=== PATIENT | male | born 1960 | race Caucasian/White ===

== ENCOUNTER 2023-08-21 18:25 | Inpatient (IN) | payer OTHER ==
[2023-08-21 19:02] LABS: #Basophils 0.1 thou/uL (0.0-0.2); #Monocytes 1.5 thou/uL (0.11-0.59); #Neutrophils 19.1 thou/uL (1.40-6.50); %Basophils 0.4 % (0.0-1.0); %Eosinophils 0.1 % (0.0-10.0); %Lymphocytes 5.7 % (21.0-51.0); %Monocytes 6.7 % (0.0-10.0); %Neutrophils 86.5 % (42.0-75.0); Hematocrit 40.7 % (42.0-52.0); Hemoglobin 14.5 g/dL (14.0-18.0); Mean Corpuscular HGB CONC 35.6 g/dL (32.0-36.0); Mean Corpuscular Hemoglobin 31.9 pg (27.0-31.0); Mean Corpuscular Volume 89.6 fl (78.0-98.0); Mean Platelet Volume 9.9 fL (7.4-10.4); Platelet Count 330 10x3/uL (130-400); RBC Distribution Width 12.7 % (11.5-14.5); Red Blood Cell (RBC) Count 4.54 mill/uL (4.70-6.10); White Blood Cell (WBC) Count 22.1 10x3/uL (4.8-10.8)
[2023-08-21 19:26] LABS: ALT (SGPT) 26 U/L (8-55); AST (SGOT) 28 U/L (5-34); Albumin 4.4 g/dL (3.5-5.0); Alkaline Phosphatase 52 U/L (40-110); Anion Gap 19 mmol/L (10-20); BUN (Urea Nitrogen) 35 mg/dL (8.4-25.7); Bilirubin, Total 0.4 mg/dL (0.2-1.2); CK (CPK) 505 U/L (30-200); Calc. Creatinine Clearance 0 mL/min (70-130); Calcium 9.2 mg/dL (7.8-10.44); Carbon Dioxide 17 mmol/L (22-29); Chloride 105 mmol/L (98-107); Estimated GFR 29; Globulin 2.9 g/dL (2.4-3.5); Glucose 126 mg/dL (70-105); Potassium 4.7 mmol/L (3.5-5.1); Protein, Total 7.3 g/dL (6.0-8.3); Sodium 136 mmol/L (136-145)
[2023-08-21 19:30] LABS: Troponin I 0.053 ng/mL (< 0.028)
[2023-08-21] MEDS ORDERED: Aspirin Chewable 81 MG TAB ONE (19:46)
[2023-08-21] MEDS ORDERED: HYDROcodone/Acetaminophen 5/325 mg Tablet PO PRN (21:25)
[2023-08-21] MEDS ORDERED: Ondansetron ODT 4 MG TAB PO PRN (21:25)
[2023-08-21] MEDS ORDERED: Ondansetron PF 4 MG/2 ML Vial IVP PRN (21:25)
[2023-08-21] MEDS ORDERED: Bisacodyl 5 MG TAB PO PRN (21:25)
[2023-08-21] MEDS ORDERED: Senokot S 8.6-50 MG TAB PO PRN (21:25)
[2023-08-21] MEDS ORDERED: Nitroglycerin 0.4 MG TAB (25 Tab Bottle) SL PRN (21:30)
[2023-08-21] MEDS ORDERED: Sodium Chloride 0.9% 1,000 ML IV SCH (22:00)
[2023-08-21 22:01] VITALS: BMI 27.6
[2023-08-21 23:35] LABS: Troponin I 0.249 ng/mL (< 0.028)
[2023-08-21] MEDS ORDERED: Heparin 5,000 UNITS/ML VIAL SC SCH (23:45)
[2023-08-21] MEDS ORDERED: Atorvastatin Calcium 40 MG TAB PO SCH (23:45)
[2023-08-22] MEDS ORDERED: Sodium Bicarb 50 MEQ/50 ML VIAL IVP SCH (01:00)
[2023-08-22 03:25] LABS: #Basophils 0.1 thou/uL (0.0-0.2); #Eosinphils 0.1 thou/uL (0.0-0.7); #Monocytes 1.4 thou/uL (0.11-0.59); #Neutrophils 9.3 thou/uL (1.40-6.50); %Basophils 0.5 % (0.0-1.0); %Eosinophils 0.9 % (0.0-10.0); %Lymphocytes 20.4 % (21.0-51.0); %Monocytes 9.9 % (0.0-10.0); %Neutrophils 67.9 % (42.0-75.0); Hemoglobin 12.8 g/dL (14.0-18.0); Mean Corpuscular HGB CONC 35.6 g/dL (32.0-36.0); Mean Corpuscular Hemoglobin 31.7 pg (27.0-31.0); Mean Corpuscular Volume 89.1 fl (78.0-98.0); Platelet Count 294 10x3/uL (130-400); RBC Distribution Width 12.8 % (11.5-14.5); Red Blood Cell (RBC) Count 4.04 mill/uL (4.70-6.10); White Blood Cell (WBC) Count 13.6 10x3/uL (4.8-10.8)
[2023-08-22 03:48] LABS: Anion Gap 15 mmol/L (10-20); BUN (Urea Nitrogen) 36 mg/dL (8.4-25.7); Calc. Creatinine Clearance 55 mL/min (70-130); Calcium 8.8 mg/dL (7.8-10.44); Carbon Dioxide 23 mmol/L (22-29); Cardiac Risk 3.9 (Less than 4.5); Chloride 106 mmol/L (98-107); Cholesterol 149 mg/dl (< 200 Desired); Estimated GFR 44; Glucose 124 mg/dL (70-105); HDL Cholesterol 38 mg/dL (>60 Neg Risk); Hemoglobin A1c 5.3 % (4.0-6.0); LDL Cholesterol, Calculated 88 mg/dL; Magnesium 2.3 mg/dL (1.6-2.6); Potassium 3.6 mmol/L (3.5-5.1); Sodium 140 mmol/L (136-145); Triglycerides 117 mg/dL (Less than 150)
[2023-08-22 03:50] LABS: Bacteria/HPF None Seen HPF (None Seen); Bilirubin Negative (Negative); Blood, Urine Negative (Negative); CAUTI Indications for Culture Alt mental st,lethar; Clarity Clear (Clear); Glucose, Urine (Dipstick) Normal (Negative); Ketone, Urine Trace mg/dL (Negative); Leukocyte Negative Leu/uL (Negative); Nitrite Negative (Negative); Protein, Urine (Dipstick) Negative (Neg-Trace); RBC/HPF 0-3 HPF (0-3); Specific Gravity, Urine 1.014 (1.002-1.036); Squamous Epithelial 0-3 HPF (0-3); Urobilinogen Normal mg/dL (Less than 2); WBC/HPF 0-3 HPF (0-3); pH, Urine 5.5 (5.0-9.0)
[2023-08-22 03:51] LABS: Urine Culture Reflex No No
[2023-08-22 03:56] LABS: Troponin I 0.382 ng/mL (< 0.028)
[2023-08-22 07:53] LABS: Troponin I 0.409 ng/mL (< 0.028)
[2023-08-22] MEDS: Aspirin Chewable 81 MG TAB PO SCH (08:03)
[2023-08-22] MEDS: Heparin 5,000 UNITS/ML VIAL SC SCH ×3 (08:04→21:13)
[2023-08-22] MEDS ORDERED: Famotidine 20 MG TAB PO SCH (09:00)
[2023-08-22] MEDS ORDERED: FLU VACC QS2023-24(6MOS UP)/PF 60 MCG/0.5 ML SYRINGE IM ONE (09:00)
[2023-08-22] MEDS: Sodium Chloride 0.9% 1,000 ML IV SCH ×2 (09:53→21:12)
[2023-08-22 11:08] LABS: Troponin I 0.333 ng/mL (< 0.028)
[2023-08-22 15:03] LABS: Anion Gap 13 mmol/L (10-20); BUN (Urea Nitrogen) 31 mg/dL (8.4-25.7); Calc. Creatinine Clearance 66 mL/min (70-130); Calcium 8.8 mg/dL (7.8-10.44); Carbon Dioxide 23 mmol/L (22-29); Chloride 108 mmol/L (98-107); Estimated GFR 54; Glucose 81 mg/dL (70-105); Potassium 3.7 mmol/L (3.5-5.1); Sodium 140 mmol/L (136-145)
[2023-08-22] MEDS: Atorvastatin Calcium 40 MG TAB PO SCH (21:13)
[2023-08-23 04:48] LABS: Anion Gap 9 mmol/L (10-20); BUN (Urea Nitrogen) 24 mg/dL (8.4-25.7); Calc. Creatinine Clearance 78 mL/min (70-130); Calcium 8.6 mg/dL (7.8-10.44); Carbon Dioxide 26 mmol/L (22-29); Chloride 109 mmol/L (98-107); Estimated GFR 67; Glucose 98 mg/dL (70-105); Potassium 4.2 mmol/L (3.5-5.1); Sodium 140 mmol/L (136-145); Troponin I 0.182 ng/mL (< 0.028)
[2023-08-23] MEDS: Sodium Chloride 0.9% 1,000 ML IV SCH ×2 (05:45→16:06)
[2023-08-23] MEDS: Heparin 5,000 UNITS/ML VIAL SC SCH ×3 (09:30→20:59)
[2023-08-23] MEDS: Aspirin Chewable 81 MG TAB PO SCH (09:33)
[2023-08-23] MEDS: Carvedilol 3.125 MG TAB PO SCH ×2 (09:33→16:07)
[2023-08-23] MEDS: Famotidine 20 MG TAB PO SCH ×2 (09:33→21:00)
[2023-08-23] MEDS ORDERED: Verapamil 5 MG/2 ML VIAL ONE (13:57)
[2023-08-23] MEDS ORDERED: Heparin 10,000 UNITS/ 10 ML VIAL ONE (13:57)
[2023-08-23] MEDS ORDERED: Lidocaine 1% (PF) 30 ML VIAL ONE (13:58)
[2023-08-23] MEDS ORDERED: Iopamidol 370 76% 100 ML VIAL ONE (13:58)
[2023-08-23] MEDS ORDERED: Nitroglycerin 50 MG/250 ML BOT 250 ML ONE (13:58)
[2023-08-23] MEDS ORDERED: fentaNYL 50 mcg/mL 1 mL Vial ONE (14:51)
[2023-08-23] MEDS ORDERED: Midazolam HCl 2 mg/2 ml Vial ONE (14:51)
[2023-08-23] MEDS ORDERED: Sodium Chloride 0.9% 200 ML IV PRN (15:21)
[2023-08-23] MEDS ORDERED: Acetaminophen/Codeine 30-300mg Tablet PO PRN (15:21)
[2023-08-23] MEDS ORDERED: Diazepam 5 MG TAB PO PRN (17:57)
[2023-08-23] MEDS ORDERED: Communication Order-Pharmacy FS SCH (17:57)
[2023-08-23] MEDS ORDERED: Isosorbide Mononitrate 30 MG ER.TAB PO SCH (18:00)
[2023-08-23] MEDS: Atorvastatin Calcium 40 MG TAB PO SCH (20:59)
[2023-08-24] MEDS: Sodium Chloride 0.9% 1,000 ML IV SCH ×3 (00:22→21:23)
[2023-08-24 05:45] LABS: Anion Gap 13 mmol/L (10-20); BUN (Urea Nitrogen) 17 mg/dL (8.4-25.7); Calc. Creatinine Clearance 75 mL/min (70-130); Calcium 8.7 mg/dL (7.8-10.44); Carbon Dioxide 24 mmol/L (22-29); Chloride 108 mmol/L (98-107); Estimated GFR 63; Glucose 88 mg/dL (70-105); Potassium 3.9 mmol/L (3.5-5.1); Sodium 141 mmol/L (136-145)
[2023-08-24] MEDS: Aspirin Chewable 81 MG TAB PO SCH (09:33)
[2023-08-24] MEDS: Isosorbide Mononitrate 30 MG ER.TAB PO SCH (09:33)
[2023-08-24] MEDS: Famotidine 20 MG TAB PO SCH ×2 (09:33→21:23)
[2023-08-24] MEDS: Carvedilol 6.25 MG TAB PO SCH ×2 (09:33→16:01)
[2023-08-24] MEDS: Heparin 5,000 UNITS/ML VIAL SC SCH ×3 (10:22→21:23)
[2023-08-24] MEDS: Acetaminophen 325 MG TAB PO PRN (13:04)
[2023-08-24] MEDS: Atorvastatin Calcium 40 MG TAB PO SCH (21:23)
[2023-08-25 06:02] LABS: Anion Gap 12 mmol/L (10-20); BUN (Urea Nitrogen) 14 mg/dL (8.4-25.7); Calc. Creatinine Clearance 84 mL/min (70-130); Calcium 8.6 mg/dL (7.8-10.44); Carbon Dioxide 25 mmol/L (22-29); Chloride 108 mmol/L (98-107); Estimated GFR 72; Glucose 94 mg/dL (70-105); Sodium 141 mmol/L (136-145)
[2023-08-25] MEDS: Carvedilol 6.25 MG TAB PO SCH ×2 (09:02→16:51)
[2023-08-25] MEDS: Acetaminophen 325 MG TAB PO PRN (09:03)
[2023-08-25] MEDS: Heparin 5,000 UNITS/ML VIAL SC SCH ×3 (09:03→20:35)
[2023-08-25] MEDS: Famotidine 20 MG TAB PO SCH ×2 (09:03→20:35)
[2023-08-25] MEDS: Isosorbide Mononitrate 30 MG ER.TAB PO SCH (09:03)
[2023-08-25] MEDS: Aspirin Chewable 81 MG TAB PO SCH (09:03)
[2023-08-25] MEDS: Atorvastatin Calcium 40 MG TAB PO SCH (20:35)
[2023-08-26] MEDS: Acetaminophen 325 MG TAB PO PRN (04:07)
[2023-08-26] MEDS: Carvedilol 6.25 MG TAB PO SCH (04:07)
[2023-08-26 05:19] LABS: #Basophils 0.1 thou/uL (0.0-0.2); #Eosinphils 0.3 thou/uL (0.0-0.7); #Monocytes 1.3 thou/uL (0.11-0.59); #Neutrophils 4.2 thou/uL (1.40-6.50); %Eosinophils 3.6 % (0.0-10.0); %Lymphocytes 16.2 % (21.0-51.0); %Monocytes 18.2 % (0.0-10.0); %Neutrophils 60.7 % (42.0-75.0); Hematocrit 35.6 % (42.0-52.0); Hemoglobin 12.5 g/dL (14.0-18.0); Mean Corpuscular HGB CONC 35.1 g/dL (32.0-36.0); Mean Corpuscular Hemoglobin 31.5 pg (27.0-31.0); Mean Corpuscular Volume 89.7 fl (78.0-98.0); Platelet Count 216 10x3/uL (130-400); RBC Distribution Width 12.2 % (11.5-14.5); Red Blood Cell (RBC) Count 3.97 mill/uL (4.70-6.10); White Blood Cell (WBC) Count 6.9 10x3/uL (4.8-10.8)
[2023-08-26 05:44] LABS: Anion Gap 13 mmol/L (10-20); BUN (Urea Nitrogen) 14 mg/dL (8.4-25.7); Calc. Creatinine Clearance 78 mL/min (70-130); Carbon Dioxide 25 mmol/L (22-29); Chloride 106 mmol/L (98-107); Estimated GFR 67; Glucose 107 mg/dL (70-105); Potassium 3.6 mmol/L (3.5-5.1); Sodium 140 mmol/L (136-145)
[2023-08-26] MEDS ORDERED: Bupivacaine PF 0.5% 30 ML VIAL ONE (06:36)
[2023-08-26] MEDS ORDERED: Dexamethasone 4 mg/ml Vial ONE (06:36)
[2023-08-26] MEDS ORDERED: PHENYLEPHRINE-NS 100 MCG/ML 10 ML SYRINGE ONE ×2 (06:36→07:43)
[2023-08-26] MEDS ORDERED: Albumin 5% 500 ML ONE (06:36)
[2023-08-26] MEDS ORDERED: EPINEPHrine 1 MG/ML AMP ONE (06:36)
[2023-08-26] MEDS ORDERED: Aminocaproic Acid 5 GM/20 ML VIAL ONE ×2 (06:49→07:43)
[2023-08-26] MEDS ORDERED: Norepinephrine 4 MG/4 ML VIAL ONE (06:49)
[2023-08-26] MEDS ORDERED: Insulin Regular 300 UNITS/3 ML VIAL ONE (06:49)
[2023-08-26] MEDS ORDERED: Midazolam HCl 2 mg/2 ml Vial ONE ×2 (06:49)
[2023-08-26] MEDS ORDERED: Rocuronium Bromide 50 MG/5 ML VIAL ONE (06:49)
[2023-08-26] MEDS ORDERED: Fentanyl 250 MCG/5 ML VIAL ONE (06:49)
[2023-08-26] MEDS ORDERED: Heparin 10,000 UNITS/1 ML VIAL 30,000 UNITS in Sodium Chloride 0.9% 1,000 ML FS SCH (07:00)
[2023-08-26] MEDS ORDERED: Clindamycin/D5W 900 mg/50 ml Premix Bag ONE (07:22)
[2023-08-26] MEDS ORDERED: LevoFLOXacin 750 mg/D5W 750 MG in Premix Bag 1 BAG IVPB SCH (07:30)
[2023-08-26] MEDS ORDERED: Clindamycin/D5W 900 MG in Premix Bag 1 BAG IVPB SCH (07:30)
[2023-08-26] MEDS ORDERED: Lidocaine 2% PF 100 mg/5 ml Syringe ONE (07:43)
[2023-08-26] MEDS ORDERED: Magnesium 5 GM/10 ML VIAL ONE (07:43)
[2023-08-26] MEDS ORDERED: Cardioplegic Soln 1,000 ML BAG ONE (07:43)
[2023-08-26] MEDS ORDERED: Heparin 30,000 units/30 ml VIAL ONE (07:43)
[2023-08-26] MEDS ORDERED: Heparin 5,000 UNITS/ML VIAL ONE (07:43)
[2023-08-26] MEDS ORDERED: Mannitol 12.5 GM/50 ML ONE (07:43)
[2023-08-26] MEDS ORDERED: Thrombin 5000 UNITS/5 ML VIAL ONE (07:43)
[2023-08-26] MEDS ORDERED: Lidocaine 1% PF 5 ML VIAL ONE (07:43)
[2023-08-26] MEDS ORDERED: Sodium Bicarb 50 MEQ/50 ML VIAL ONE (07:43)
[2023-08-26] MEDS ORDERED: PROPOFOL 200 MG/20 ML VIAL ONE (07:43)
[2023-08-26] MEDS ORDERED: Papaverine 60 MG/2 ML VIAL ONE (07:43)
[2023-08-26] MEDS ORDERED: Potassium Chloride 60 MEQ/30 ML VIAL ONE (07:43)
[2023-08-26] MEDS ORDERED: Rocuronium Bromide 10 MG/ML (10ML VIAL) ONE (07:43)
[2023-08-26] MEDS ORDERED: Vancomycin 1 GM VIAL ONE (07:43)
[2023-08-26] MEDS ORDERED: Heparin 10,000 UNITS/ 10 ML VIAL ONE (08:32)
[2023-08-26] MEDS ORDERED: niCARdipine 25 MG/10 ML SDV ONE (11:21)
[2023-08-26] MEDS ORDERED: Bisacodyl 10 MG SUPP PR PRN (11:42)
[2023-08-26] MEDS ORDERED: Nitroglycerin 50 MG/250 ML BOT 250 ML IVPB PRN (11:42)
[2023-08-26] MEDS ORDERED: Ipratropium/Albuterol 3 ML NEB NEB PRN (11:42)
[2023-08-26] MEDS ORDERED: NOREPINEPHRINE 8 MG/250 ML-D5W 250 ML IVPB PRN (11:42)
[2023-08-26] MEDS ORDERED: Guaifenesin DM 100-10/5 ML UDCUP PO PRN (11:42)
[2023-08-26] MEDS ORDERED: Hetastarch 6% 500 ML 500 ML IVPB PRN (11:42)
[2023-08-26] MEDS ORDERED: fentaNYL 50 mcg/mL 1 mL Vial SLOW IVP PRN (11:42)
[2023-08-26] MEDS ORDERED: Bisacodyl 5 MG TAB PO PRN (11:42)
[2023-08-26] MEDS ORDERED: Magnesium 2 GM/50 ML(in water) 2 GM in Premix Bag 1 BAG IVPB SCH (11:42)
[2023-08-26] MEDS ORDERED: D5 1/2 NS w/20 mEq KCL 1,000 ML IV SCH (11:42)
[2023-08-26] MEDS ORDERED: Ondansetron PF 4 MG/2 ML Vial IVP PRN (11:42)
[2023-08-26] MEDS ORDERED: Acetaminophen 325 MG TAB PO PRN (11:42)
[2023-08-26] MEDS ORDERED: Mag-Al 1200 mg/1200 mg/30 ML UDCUP PO PRN (11:42)
[2023-08-26] MEDS ORDERED: Morphine 2 MG/ML VIAL SLOW IVP PRN (11:42)
[2023-08-26] MEDS ORDERED: Potassium Chloride 20 MEQ/100 ML PREMIX BAG IVPB PRN (11:42)
[2023-08-26] MEDS ORDERED: hydrALAZINE 20 MG/ML VIAL SLOW IVP PRN (11:42)
[2023-08-26] MEDS ORDERED: Nitroglycerin 50 MG/250 ML BOT 0 ML ONE (11:56)
[2023-08-26 11:58] LABS: Actual Bicarbonate (HCO3a) 21.3 mEq/L (22-28); Base Excess (BEa) -3.8 mEq/L (-2.0 to +3.0); CO2 Tension 39.1 mmHg (35.0-45.0); Calcium, Ionized (arterial) 1.11 mmol/L (1.12-1.30); Carboxyhemoglobin (COHb) 0.1 gm% (0.0-3.0); Hematocrit-ABG 36 % (42.0-52.0); Hemoglobin (Hb) 12.1 g/dL (14.0-18.0); O2 Tension (PaO2), arterial 101.7 mmHg (> 80.0); Potassium - ABG Lab 4.06 mmol/L (3.70-5.30); pH, Arterial 7.355 (7.35-7.45)
[2023-08-26 12:02] LABS: Puncture Site Arterial Line
[2023-08-26 12:03] LABS: ALV-art Gradient 277.225 mmHg (0-20)
[2023-08-26 12:07] LABS: #Eosinphils 0.3 thou/uL (0.0-0.7); #Monocytes 1.1 thou/uL (0.11-0.59); #Neutrophils 8.3 thou/uL (1.40-6.50); %Basophils 0.4 % (0.0-1.0); %Eosinophils 2.3 % (0.0-10.0); %Monocytes 9.5 % (0.0-10.0); %Neutrophils 75.2 % (42.0-75.0); Hematocrit 31.3 % (42.0-52.0); Mean Corpuscular HGB CONC 35.1 g/dL (32.0-36.0); Mean Corpuscular Hemoglobin 31.8 pg (27.0-31.0); Mean Corpuscular Volume 90.5 fl (78.0-98.0); Mean Platelet Volume 10.1 fL (7.4-10.4); Platelet Count 161 10x3/uL (130-400); RBC Distribution Width 12.4 % (11.5-14.5); Red Blood Cell (RBC) Count 3.46 mill/uL (4.70-6.10); White Blood Cell (WBC) Count 11.1 10x3/uL (4.8-10.8)
[2023-08-26] MEDS ORDERED: HUMULIN R 100 UNITS in Sodium Chloride 0.9% 100 ML IVPB SCH (12:15)
[2023-08-26] MEDS ORDERED: Dextrose 50% Abboject 50 ML SYRINGE SLOW IVP PRN (12:15)
[2023-08-26] MEDS ORDERED: Glucagon 1 MG/ML KIT SC PRN (12:15)
[2023-08-26] MEDS ORDERED: niCARdipine 25 MG in Sodium Chloride 0.9% 250 ML 250 ML IVPB SCH (12:15)
[2023-08-26] MEDS ORDERED: Dextrose 5% in Water 1,000 ML IV PRN (12:15)
[2023-08-26 12:18] LABS: INR-International Normal Ratio 1.3; Prothrombin Time 16.9 sec (12.0-14.7)
[2023-08-26 12:29] LABS: Anion Gap 11 mmol/L (10-20); BUN (Urea Nitrogen) 14 mg/dL (8.4-25.7); Calc. Creatinine Clearance 90 mL/min (70-130); Calcium 7.9 mg/dL (7.8-10.44); Carbon Dioxide 22 mmol/L (22-29); Chloride 109 mmol/L (98-107); Estimated GFR 79; Glucose 150 mg/dL (70-105); Sodium 138 mmol/L (136-145)
[2023-08-26] MEDS: Clindamycin/D5W 900 MG in Premix Bag 1 BAG IVPB SCH ×3 (13:11→22:22)
[2023-08-26] MEDS: Insulin Regular 300 UNITS/3 ML VIAL SC PRN ×3 (13:18→20:31)
[2023-08-26 13:45] LABS: Actual Bicarbonate (HCO3a) 21.5 mEq/L (22-28); Base Excess (BEa) -3.6 mEq/L (-2.0 to +3.0); CO2 Tension 39.2 mmHg (35.0-45.0); Calcium, Ionized (arterial) 1.11 mmol/L (1.12-1.30); Carboxyhemoglobin (COHb) 0.5 gm% (0.0-3.0); Hematocrit-ABG 40 % (42.0-52.0); Hemoglobin (Hb) 13.6 g/dL (14.0-18.0); Puncture Site Arterial Line; pH, Arterial 7.358 (7.35-7.45)
[2023-08-26 14:56] LABS: ALV-art Gradient 175.125 mmHg (0-20); Actual Bicarbonate (HCO3a) 20.4 mEq/L (22-28); Base Excess (BEa) -4.4 mEq/L (-2.0 to +3.0); CO2 Tension 36.7 mmHg (35.0-45.0); Calcium, Ionized (arterial) 1.11 mmol/L (1.12-1.30); Carboxyhemoglobin (COHb) 0.7 gm% (0.0-3.0); Hematocrit-ABG 40 % (42.0-52.0); Hemoglobin (Hb) 13.5 g/dL (14.0-18.0); O2 Tension (PaO2), arterial 64.2 mmHg (> 80.0); Puncture Site Arterial Line; pH, Arterial 7.362 (7.35-7.45)
[2023-08-26] MEDS: fentaNYL 50 mcg/mL 1 mL Vial SLOW IVP PRN ×3 (15:12→22:21)
[2023-08-26 17:14] LABS: Hematocrit 35.2 % (42.0-52.0); Hemoglobin 12.3 g/dL (14.0-18.0)
[2023-08-26 17:42] LABS: Potassium 4.2 mmol/L (3.5-5.1)
[2023-08-26] MEDS: Atorvastatin Calcium 20 MG TAB PO SCH (20:30)
[2023-08-26] MEDS ORDERED: Famotidine/PF 20 mg/2ml Vial SLOW IVP SCH (21:00)
[2023-08-27] MEDS: fentaNYL 50 mcg/mL 1 mL Vial SLOW IVP PRN ×3 (01:38→09:55)
[2023-08-27 04:07] LABS: #Monocytes 1.8 thou/uL (0.11-0.59); #Neutrophils 9.8 thou/uL (1.40-6.50); %Basophils 0.1 % (0.0-1.0); %Lymphocytes 7.4 % (21.0-51.0); %Monocytes 14.6 % (0.0-10.0); %Neutrophils 77.5 % (42.0-75.0); Hematocrit 34.7 % (42.0-52.0); Mean Corpuscular HGB CONC 34.6 g/dL (32.0-36.0); Mean Corpuscular Hemoglobin 31.8 pg (27.0-31.0); Mean Platelet Volume 10.2 fL (7.4-10.4); Platelet Count 229 10x3/uL (130-400); Red Blood Cell (RBC) Count 3.77 mill/uL (4.70-6.10); White Blood Cell (WBC) Count 12.6 10x3/uL (4.8-10.8)
[2023-08-27 04:33] LABS: Anion Gap 12 mmol/L (10-20); BUN (Urea Nitrogen) 16 mg/dL (8.4-25.7); Calc. Creatinine Clearance 84 mL/min (70-130); Carbon Dioxide 24 mmol/L (22-29); Chloride 105 mmol/L (98-107); Estimated GFR 72; Glucose 135 mg/dL (70-105); Potassium 4.3 mmol/L (3.5-5.1); Sodium 137 mmol/L (136-145)
[2023-08-27] MEDS: Clindamycin/D5W 900 MG in Premix Bag 1 BAG IVPB SCH (06:26)
[2023-08-27] MEDS: Aspirin 325 MG TAB PO SCH (09:45)
[2023-08-27] MEDS: Magnesium 2 GM/50 ML(in water) 2 GM in Premix Bag 1 BAG IVPB SCH (09:45)
[2023-08-27] MEDS: Carvedilol 3.125 MG TAB PO SCH ×2 (09:45→16:30)
[2023-08-27] MEDS: traMADol HCl 50 MG TAB PO PRN ×2 (09:55→20:16)
[2023-08-27] MEDS ORDERED: Insulin Glargine 30 UNITS/0.3 ML VIAL SC PRN (12:11)
[2023-08-27] MEDS: Atorvastatin Calcium 20 MG TAB PO SCH (20:16)
[2023-08-28] MEDS ORDERED: Mineral Oil ENEMA PR PRN (07:06)
[2023-08-28] MEDS ORDERED: Artificial Tear Sol 15 ML BOT EA EYE PRN (07:06)
[2023-08-28] MEDS ORDERED: Bisacodyl 10 MG SUPP PR PRN (07:06)
[2023-08-28] MEDS ORDERED: diphenhydrAMINE 25 MG CAP PO PRN (07:06)
[2023-08-28] MEDS ORDERED: Zolpidem Tartrate 5 MG TAB PO PRN (07:06)
[2023-08-28] MEDS ORDERED: Milk Of Magnesia 30 ML UDCUP PO PRN (07:06)
[2023-08-28] MEDS ORDERED: Mag-Al 1200 mg/1200 mg/30 ML UDCUP PO PRN (07:06)
[2023-08-28] MEDS ORDERED: Nitroglycerin 0.4 MG TAB (25 Tab Bottle) SL PRN (07:06)
[2023-08-28] MEDS ORDERED: Bisacodyl 5 MG TAB PO PRN (07:06)
[2023-08-28] MEDS: Aspirin 325 MG TAB PO SCH (08:33)
[2023-08-28] MEDS: Carvedilol 6.25 MG TAB PO SCH ×2 (08:33→20:21)
[2023-08-28] MEDS: traMADol HCl 50 MG TAB PO PRN ×2 (08:33→20:32)
[2023-08-28] MEDS: Magnesium 2 GM/50 ML(in water) 2 GM in Premix Bag 1 BAG IVPB SCH (08:34)
[2023-08-28] MEDS: Guaifenesin DM 100-10/5 ML UDCUP PO PRN ×2 (08:38→20:32)
[2023-08-28] MEDS: Atorvastatin Calcium 20 MG TAB PO SCH (20:20)
[2023-08-29] MEDS: traMADol HCl 50 MG TAB PO PRN (08:22)
[2023-08-29] MEDS: Carvedilol 6.25 MG TAB PO SCH (08:22)
[2023-08-29] MEDS: Aspirin 325 MG TAB PO SCH (08:23)
[2023-08-29] MEDS ORDERED: Lisinopril 2.5 MG TAB PO SCH (09:00)
[2023-08-29 16:42] VITALS: BP 122/69; TEMP 98.3
== END 2023-08-29 17:45 | disposition home or self-care (01) | DRG 234 ==
LOC: ERS 18:25 → 2SE 20:15 → OBSVTOIN 08-22 11:24 → 2SE 08-24 17:22 → CCU 08-26 10:53 → 2NO 08-28 22:29
PROVIDERS: ADMIT Student in an Organized Health Care Education/Training Program; ATTEND Internal Medicine
PROC: 4A023N7 Measurement of Cardiac Sampling and Pressure, Left Heart, Percutaneous Approach (ICD-10-PCS; principal; 2023-08-23)
PROC: B2111ZZ Fluoroscopy of Multiple Coronary Arteries using Low Osmolar Contrast (ICD-10-PCS; 2023-08-23)
PROC: B2151ZZ Fluoroscopy of Left Heart using Low Osmolar Contrast (ICD-10-PCS; 2023-08-23)
PROC: 02100Z9 Bypass Coronary Artery, One Artery from Left Internal Mammary, Open Approach (ICD-10-PCS; 2023-08-26)
PROC: 021309W Bypass Coronary Artery, Four or More Arteries from Aorta with Autologous Venous Tissue, Open Approach (ICD-10-PCS; 2023-08-26)
PROC: 06BQ0ZZ Excision of Left Saphenous Vein, Open Approach (ICD-10-PCS; 2023-08-26)
PROC: 5A1221Z Performance of Cardiac Output, Continuous (ICD-10-PCS; 2023-08-26)
PROC: 02L70CK Occlusion of Left Atrial Appendage with Extraluminal Device, Open Approach (ICD-10-PCS; 2023-08-26)
PROC: 4A133R1 Monitoring of Arterial Saturation, Peripheral, Percutaneous Approach (ICD-10-PCS; 2023-08-26)
PROC: 30233J1 Transfusion of Nonautologous Serum Albumin into Peripheral Vein, Percutaneous Approach (ICD-10-PCS; 2023-08-26)
DX: I21.4 Non-ST elevation (NSTEMI) myocardial infarction (principal); M62.82 Rhabdomyolysis; N17.9 Acute kidney failure, unspecified; I25.10 Atherosclerotic heart disease of native coronary artery without angina pectoris; E78.5 Hyperlipidemia, unspecified; N18.2 Chronic kidney disease, stage 2 (mild); I12.9 Hypertensive chronic kidney disease with stage 1 through stage 4 chronic kidney disease, or unspecified chronic kidney disease; Z82.49 Family history of ischemic heart disease and other diseases of the circulatory system; Z88.0 Allergy status to penicillin; Z79.899 Other long term (current) drug therapy; Z98.890 Other specified postprocedural states
CPT/HCPCS: 36415; 36416; 36430; 71045; 80048; 80053; 80061; 81001; 82550; 82805; 83036; 83605; 83735; 84443; 84484; 85025; 85610; 85730; 86850; 86900; 86901; 93005; 93010; 93306; 93458; 93798; 94002; 94150; 94760; 96360; 96361; 96372; 96374; 97139; 99152; A4311; C1751; C1769; C1894; G0378; J0171; J1100; J1642; J1644; J1815; J2001; J2150; J2250; J2440; J2704; J3010; J3370; J3475; J3480; J3490; J7050; P9045; Q9967; S0017; S0020; S0028

== ENCOUNTER 2023-09-04 12:07 | Observation (INO) | payer OTHER ==
[2023-09-04 12:43] LABS: #Basophils 0.1 thou/uL (0.0-0.2); #Eosinphils 0.1 thou/uL (0.0-0.7); #Monocytes 2.2 thou/uL (0.11-0.59); #Neutrophils 14.6 thou/uL (1.40-6.50); %Basophils 0.4 % (0.0-1.0); %Eosinophils 0.5 % (0.0-10.0); %Lymphocytes 15.3 % (21.0-51.0); %Monocytes 10.7 % (0.0-10.0); %Neutrophils 72.4 % (42.0-75.0); Hematocrit 39.2 % (42.0-52.0); Hemoglobin 13.4 g/dL (14.0-18.0); Mean Corpuscular HGB CONC 34.2 g/dL (32.0-36.0); Mean Corpuscular Hemoglobin 31.2 pg (27.0-31.0); Mean Corpuscular Volume 91.2 fl (78.0-98.0); Mean Platelet Volume 9.3 fL (7.4-10.4); Platelet Count 871 10x3/uL (130-400); RBC Distribution Width 12.4 % (11.5-14.5); White Blood Cell (WBC) Count 20.2 10x3/uL (4.8-10.8)
[2023-09-04 12:56] LABS: INR-International Normal Ratio 1.1; PTT 30.3 sec (22.9-36.1); Prothrombin Time 14.4 sec (12.0-14.7)
[2023-09-04] MEDS ORDERED: Amiodarone 450 MG, Admixture Fee 1 EACH in Dextrose 5% in Water 250 ML IVPB SCH (13:00)
[2023-09-04] MEDS ORDERED: Amiodarone 150 MG, Admixture Fee 1 EACH in Dextrose 5% in Water 100 ML IVPB SCH (13:00)
[2023-09-04 13:05] LABS: ALT (SGPT) 26 U/L (8-55); AST (SGOT) 25 U/L (5-34); Albumin 4.2 g/dL (3.5-5.0); Alkaline Phosphatase 52 U/L (40-110); Anion Gap 16 mmol/L (10-20); BUN (Urea Nitrogen) 32 mg/dL (8.4-25.7); Bilirubin, Total 0.4 mg/dL (0.2-1.2); Calc. Creatinine Clearance 0 mL/min (70-130); Calcium 9.6 mg/dL (7.8-10.44); Carbon Dioxide 26 mmol/L (22-29); Chloride 101 mmol/L (98-107); Estimated GFR 75; Globulin 3.6 g/dL (2.4-3.5); Glucose 112 mg/dL (70-105); Potassium 4.7 mmol/L (3.5-5.1); Protein, Total 7.8 g/dL (6.0-8.3); Sodium 138 mmol/L (136-145)
[2023-09-04 13:14] LABS: Troponin I 0.442 ng/mL (< 0.028)
[2023-09-04] MEDS ORDERED: PROPOFOL 20 ML ONE (14:06)
[2023-09-04] MEDS ORDERED: Nitroglycerin 0.4 MG TAB (25 Tab Bottle) SL PRN (14:27)
[2023-09-04] MEDS ORDERED: Ondansetron PF 4 MG/2 ML Vial IVP PRN (14:29)
[2023-09-04] MEDS ORDERED: Acetaminophen 325 MG TAB PO PRN (14:29)
[2023-09-04] MEDS ORDERED: Ondansetron ODT 4 MG TAB PO PRN (14:29)
[2023-09-04] MEDS ORDERED: Calcium Carbonate 500 MG ChewTAB PO PRN (14:29)
[2023-09-04] MEDS ORDERED: Aspirin 325 mg Enteric Coated Tablet PO SCH (14:45)
[2023-09-04 16:14] LABS: Magnesium 2.3 mg/dL (1.6-2.6)
[2023-09-04 16:27] LABS: Troponin I 0.452 ng/mL (< 0.028)
[2023-09-04 16:43] VITALS: BMI 25.5
[2023-09-04] MEDS ORDERED: Atorvastatin Calcium 40 MG TAB PO SCH (21:00)
[2023-09-04] MEDS: Carvedilol 6.25 MG TAB PO SCH (21:43)
[2023-09-05 04:26] LABS: #Basophils 0.1 thou/uL (0.0-0.2); #Eosinphils 0.1 thou/uL (0.0-0.7); #Monocytes 1.4 thou/uL (0.11-0.59); #Neutrophils 12.1 thou/uL (1.40-6.50); %Basophils 0.4 % (0.0-1.0); %Eosinophils 0.5 % (0.0-10.0); %Lymphocytes 12.7 % (21.0-51.0); %Monocytes 8.9 % (0.0-10.0); %Neutrophils 76.8 % (42.0-75.0); Hematocrit 37.9 % (42.0-52.0); Hemoglobin 12.9 g/dL (14.0-18.0); Mean Corpuscular Hemoglobin 30.9 pg (27.0-31.0); Mean Corpuscular Volume 90.9 fl (78.0-98.0); RBC Distribution Width 12.3 % (11.5-14.5); Red Blood Cell (RBC) Count 4.17 mill/uL (4.70-6.10); White Blood Cell (WBC) Count 15.8 10x3/uL (4.8-10.8)
[2023-09-05 04:34] LABS: Platelet Count 695 10x3/uL (130-400)
[2023-09-05 04:51] LABS: Anion Gap 13 mmol/L (10-20); BUN (Urea Nitrogen) 29 mg/dL (8.4-25.7); Calc. Creatinine Clearance 83 mL/min (70-130); Calcium 9.2 mg/dL (7.8-10.44); Carbon Dioxide 25 mmol/L (22-29); Chloride 103 mmol/L (98-107); Estimated GFR 79; Glucose 148 mg/dL (70-105); Potassium 4.4 mmol/L (3.5-5.1); Sodium 137 mmol/L (136-145)
[2023-09-05 08:37] VITALS: TEMP 97.6
[2023-09-05] MEDS ORDERED: Aspirin 325 mg Enteric Coated Tablet PO SCH (09:00)
[2023-09-05] MEDS ORDERED: Lisinopril 2.5 MG TAB PO SCH (09:00)
[2023-09-05] MEDS: Carvedilol 6.25 MG TAB PO SCH (09:10)
[2023-09-05] MEDS ORDERED: Amiodarone 200 MG TAB PO SCH ×2 (09:30→21:00)
[2023-09-05 13:45] VITALS: BP 134/79
== END 2023-09-05 14:28 | disposition home or self-care (01) ==
LOC: ERS 12:07 → INTOOBSV 13:37 → 2NO 13:37
PROVIDERS: ADMIT Internal Medicine; ATTEND Hospitalist
PROC: 5A2204Z Restoration of Cardiac Rhythm, Single (ICD-10-PCS; principal; 2023-09-04)
DX: I25.10 Atherosclerotic heart disease of native coronary artery without angina pectoris (principal); I21.4 Non-ST elevation (NSTEMI) myocardial infarction; I25.810 Atherosclerosis of coronary artery bypass graft(s) without angina pectoris; I12.9 Hypertensive chronic kidney disease with stage 1 through stage 4 chronic kidney disease, or unspecified chronic kidney disease; N18.2 Chronic kidney disease, stage 2 (mild); I82.409 Acute embolism and thrombosis of unspecified deep veins of unspecified lower extremity; D72.829 Elevated white blood cell count, unspecified; E78.5 Hyperlipidemia, unspecified; Z98.890 Other specified postprocedural states; Z79.82 Long term (current) use of aspirin; Z79.899 Other long term (current) drug therapy; Z95.5 Presence of coronary angioplasty implant and graft
CPT/HCPCS: 36415; 71045; 80048; 80053; 83735; 83880; 84484; 85025; 85610; 85730; 92960; 93005; 94760; 96374; 96376; 99155; G0378; J0282; J2704; J7070